=== PATIENT | male | born 1990 ===

== ENCOUNTER 2022-10-19 15:00 | Emergency (ER) | payer SELFPAY ==
[2022-10-19] MEDS ORDERED: Lidocaine 1% with EPINEPHrine 1:100,000 10 ML MDV INFILT ONE (15:01)
[2022-10-19] MEDS ORDERED: Acetaminophen/HYDROcodone 325-5 MG Tab PO ONE (15:14)
[2022-10-19] MEDS ORDERED: Ibuprofen 400 MG Tab PO ONE (15:14)
== END 2022-10-19 15:55 | disposition home or self-care (01) ==
LOC: FB.ED 15:00
DX: S01.01XA Laceration without foreign body of scalp, initial encounter (principal); F17.210 Nicotine dependence, cigarettes, uncomplicated; W00.0XXA Fall on same level due to ice and snow, initial encounter
CPT/HCPCS: 12002; 99282; A9270